=== PATIENT | male | born 1995 | race Caucasian/White ===

== ENCOUNTER 2020-01-22 08:40 | Outpatient (CLI) | payer OTHER | END 2020-01-22 08:41 | disposition home or self-care (01) | LOC: COV 08:40 | PROVIDERS: ATTEND Family Medicine | DX: R05 Cough (principal); Z20.828 Contact with and (suspected) exposure to other viral communicable diseases; R06.02 Shortness of breath; R09.81 Nasal congestion; M79.10 Myalgia, unspecified site; R19.7 Diarrhea, unspecified ==